=== PATIENT | female | born 1960 | race African-American/Black ===

== ENCOUNTER 2022-03-22 19:13 | Emergency (ER) | payer OTHER ==
[2022-03-22] MEDS ORDERED: Aspirin Chewable 81 MG TAB ONE (19:50)
[2022-03-22 20:24] LABS: #Eosinphils 0.1 10x3/uL (0.0-0.5); #Monocytes 0.6 10x3/uL (0.0-1.1); #Neutrophils 2.5 10x3/uL (1.5-8.4); %Basophils 0.7 % (0.0-2.0); %Eosinophils 1.1 % (0.0-6.0); %Lymphocytes 47.2 % (18.0-47.0); %Monocytes 9.8 % (0.0-10.0); Mean Corpuscular HGB CONC 31.9 g/dL (32.0-36.0); Mean Corpuscular Hemoglobin 29.6 pg (27.0-33.0); Mean Corpuscular Volume 92.7 fl (81.6-98.3); Mean Platelet Volume 11.5 fl (7.4-10.4); Platelet Count 222 10x3/uL (150-450); RBC Distribution Width 12.8 % (11.5-14.5); Red Blood Cell (RBC) Count 4.39 10x6/uL (3.90-5.03); White Blood Cell (WBC) Count 6.2 10x3/uL (3.5-10.5)
[2022-03-22 20:25] LABS: ALT (SGPT) 42 U/L (8-55); AST (SGOT) 65 U/L (5-34); Albumin 4.5 g/dL (3.4-4.8); Alkaline Phosphatase 65 U/L (40-110); Anion Gap 18 mmol/L (10-20); BUN (Urea Nitrogen) 12 mg/dL (9.8-20.1); Bilirubin, Total 0.3 mg/dL (0.2-1.2); Calc. Creatinine Clearance 0 mL/min (70-130); Calcium 8.8 mg/dL (7.8-10.44); Carbon Dioxide 24 mmol/L (23-31); Chloride 100 mmol/L (98-107); Globulin 3.8 g/dL (2.4-3.5); Glucose 104 mg/dL (80-115); Potassium 3.9 mmol/L (3.5-5.1); Protein, Total 8.3 g/dL (5.8-8.1); Sodium 138 mmol/L (136-145)
[2022-03-22 21:06] LABS: SARS-CoV-2 NAA Rapid Test DETECTED (NotDetected)
== END 2022-03-22 21:29 | disposition home or self-care (01) ==
LOC: CSHERS 19:13
DX: U07.1 COVID-19 (principal); R07.2 Precordial pain; E11.9 Type 2 diabetes mellitus without complications; I10 Essential (primary) hypertension
CPT/HCPCS: 71045; 80053; 83880; 84484; 85025; 93005; U0002

== ENCOUNTER 2023-07-14 13:47 | Emergency (ER) | payer OTHER ==
[2023-07-14] MEDS ORDERED: Ondansetron ODT 4 MG TAB ONE (14:34)
[2023-07-14] MEDS ORDERED: Morphine 10 MG/ML VIAL ONE (14:34)
[2023-07-14 16:19] LABS: Bilirubin Neg (Negative); Blood, Urine 10 (Negative); Clarity Slightly Cloudy (Clear); Glucose, Urine (Dipstick) Normal (Negative); Ketone, Urine Negative (Negative); Leukocyte 500 (Negative); Nitrite Negative (Negative); Protein, Urine (Dipstick) 15 mg/dl (Neg-Trace); Specific Gravity, Urine 1.015 (1.005-1.030); Urobilinogen Normal mg/dL (Less than 2)
[2023-07-14 16:31] LABS: Bacteria/HPF 2+ HPF (None Seen); CAUTI Indications for Culture Pelvic or flank pain; RBC/HPF 0-3 HPF (0-3); Squamous Epithelial 0-3 HPF (0-3); Trichomonas/HPF Rare HPF (None Seen); WBC/HPF Greater Than 50 HPF (0-3)
[2023-07-14 16:33] LABS: Urine Culture Reflex Yes Yes
[2023-07-14] MEDS ORDERED: Cephalexin 250 MG CAP ONE (17:05)
== END 2023-07-14 17:10 | disposition home or self-care (01) ==
LOC: CSHERS 13:47
DX: N39.0 Urinary tract infection, site not specified (principal); M54.50 Low back pain, unspecified; I25.10 Atherosclerotic heart disease of native coronary artery without angina pectoris; E11.9 Type 2 diabetes mellitus without complications; I10 Essential (primary) hypertension
CPT/HCPCS: 81001; 87086; 96372; 99283; J2270; Q0162

== ENCOUNTER 2023-10-13 12:20 | Emergency (ER) | payer OTHER ==
[2023-10-13] MEDS ORDERED: Fleet Saline Enema 133 ML BOT PR SCH (13:30)
== END 2023-10-13 16:50 | disposition home or self-care (01) ==
LOC: CSHERS 12:20
DX: K59.00 Constipation, unspecified (principal); I25.10 Atherosclerotic heart disease of native coronary artery without angina pectoris; E11.9 Type 2 diabetes mellitus without complications; I10 Essential (primary) hypertension
CPT/HCPCS: 99283

== ENCOUNTER 2023-12-09 15:17 | Emergency (ER) | payer OTHER ==
[2023-12-09] MEDS ORDERED: traMADol HCl 50 MG TAB ONE (18:40)
== END 2023-12-09 19:01 | disposition home or self-care (01) ==
LOC: CSHERS 15:17
DX: M54.6 Pain in thoracic spine (principal); I25.2 Old myocardial infarction; I25.10 Atherosclerotic heart disease of native coronary artery without angina pectoris; I10 Essential (primary) hypertension; E11.40 Type 2 diabetes mellitus with diabetic neuropathy, unspecified
CPT/HCPCS: 71046

== ENCOUNTER 2024-02-18 12:45 | Emergency (ER) | payer OTHER ==
[~2024-02-18 12:45] MED LIST: Iopamidol 300 61% 100 ML VIAL FS ONE
[2024-02-18] MEDS ORDERED: Ondansetron PF 4 MG/2 ML Vial ONE (14:21)
[2024-02-18] MEDS ORDERED: Morphine 4 MG/ML VIAL ONE (14:21)
[2024-02-18 14:22] LABS: #Basophils 0.08 10x3/uL (0.0-0.2); #Eosinphils 0.33 10x3/uL (0.0-0.5); #Neutrophils 5.16 10x3/uL (1.5-8.4); %Basophils 0.8 % (0.0-2.0); %Eosinophils 3.1 % (0.0-6.0); %Lymphocytes 37.6 % (18.0-47.0); %Monocytes 9.4 % (0.0-10.0); %Neutrophils 48.7 % (40.0-75.0); Hematocrit 41.3 % (34.9-44.5); Hemoglobin 13.8 g/dL (12.0-15.5); Mean Corpuscular HGB CONC 33.4 g/dL (32.0-36.0); Mean Corpuscular Hemoglobin 30.4 pg (27.0-33.0); Mean Platelet Volume 11.2 fl (7.4-10.4); Platelet Count 276 10x3/uL (150-450); RBC Distribution Width 13.9 % (11.5-14.5); Red Blood Cell (RBC) Count 4.54 10x6/uL (3.90-5.03); White Blood Cell (WBC) Count 10.6 10x3/uL (3.5-10.5)
[2024-02-18 14:39] LABS: Troponin I Less than 0.010 ng/mL (< 0.028)
[2024-02-18 14:40] LABS: ALT (SGPT) 20 U/L (8-55); AST (SGOT) 16 U/L (5-34); Alkaline Phosphatase 62 U/L (40-110); Anion Gap 12 mmol/L (10-20); BUN (Urea Nitrogen) 12 mg/dL (9.8-20.1); Bilirubin, Total 0.4 mg/dL (0.2-1.2); Calc. Creatinine Clearance 0 mL/min (70-130); Calcium 9.8 mg/dL (7.8-10.44); Carbon Dioxide 29 mmol/L (23-31); Chloride 99 mmol/L (98-107); Estimated GFR 65; Globulin 3.6 g/dL (2.4-3.5); Glucose 133 mg/dL (80-115); Lipase 67 U/L (8-78); Potassium 3.4 mmol/L (3.5-5.1); Protein, Total 7.6 g/dL (5.8-8.1); Sodium 137 mmol/L (136-145)
[2024-02-18 15:14] LABS: Bilirubin Neg (Negative); Blood, Urine Negative (Negative); Clarity Clear (Clear); Glucose, Urine (Dipstick) Normal (Negative); Ketone, Urine Negative (Negative); Leukocyte 25 (Negative); Nitrite Negative (Negative); Protein, Urine (Dipstick) Negative (Neg-Trace); Urobilinogen Normal mg/dL (Less than 2); pH, Urine 6.5 (5.0-9.0)
[2024-02-18 16:02] LABS: RBC/HPF None Seen HPF (0-3)
[2024-02-18 16:03] LABS: Bacteria/HPF None Seen HPF (None Seen); CAUTI Indications for Culture Pelvic or flank pain; Squamous Epithelial 0-3 HPF (0-3); WBC/HPF 0-3 HPF (0-3)
[2024-02-18 16:04] LABS: Urine Culture Reflex No No
== END 2024-02-18 18:15 | disposition home or self-care (01) ==
LOC: CSHERS 12:45
DX: R10.13 Epigastric pain (principal); E11.9 Type 2 diabetes mellitus without complications; I10 Essential (primary) hypertension
CPT/HCPCS: 36415; 74177; 80053; 81001; 83605; 83690; 84484; 85025; 93005; 96374; 96375; J2270; J2405; Q9967

== ENCOUNTER 2024-04-02 14:33 | Inpatient (IN) | payer OTHER ==
[~2024-04-02 14:33] MED LIST changes: -Iopamidol 300 61% 100 ML VIAL FS ONE; +Iopamidol 370 76% 100 ML VIAL ONE
[2024-04-02 15:27] LABS: #Basophils 0.07 10x3/uL (0.0-0.2); #Eosinphils 0.26 10x3/uL (0.0-0.5); #Monocytes 0.81 10x3/uL (0.0-1.1); #Neutrophils 3.07 10x3/uL (1.5-8.4); %Eosinophils 3.6 % (0.0-6.0); %Lymphocytes 40.8 % (18.0-47.0); %Monocytes 11.4 % (0.0-10.0); %Neutrophils 43.1 % (40.0-75.0); Hematocrit 36.9 % (34.9-44.5); Hemoglobin 12.4 g/dL (12.0-15.5); Mean Corpuscular HGB CONC 33.6 g/dL (32.0-36.0); Mean Corpuscular Volume 92.3 fL (81.6-98.3); Mean Platelet Volume 10.6 fL (7.4-10.4); Platelet Count 244 10x3/uL (150-450); RBC Distribution Width 13.4 % (11.5-14.5); White Blood Cell (WBC) Count 7.1 10x3/uL (3.5-10.5)
[2024-04-02 15:39] LABS: ALT (SGPT) 9 U/L (8-55); AST (SGOT) 15 U/L (5-34); Albumin 4.1 g/dL (3.4-4.8); Alkaline Phosphatase 68 U/L (40-110); Anion Gap 12 mmol/L (10-20); BUN (Urea Nitrogen) 15 mg/dL (9.8-20.1); Bilirubin, Total 0.2 mg/dL (0.2-1.2); Calc. Creatinine Clearance 0 mL/min (70-130); Calcium 9.7 mg/dL (7.8-10.44); Carbon Dioxide 26 mmol/L (23-31); Chloride 104 mmol/L (98-107); Estimated GFR 50; Globulin 3.9 g/dL (2.4-3.5); Glucose 109 mg/dL (80-115); Lipase 44 U/L (8-78); Magnesium 1.8 mg/dL (1.6-2.6); Potassium 3.6 mmol/L (3.5-5.1); Sodium 138 mmol/L (136-145)
[2024-04-02 17:41] LABS: Bilirubin Neg (Negative); Blood, Urine Negative (Negative); Clarity Clear (Clear); Glucose, Urine (Dipstick) Normal (Negative); Ketone, Urine Negative (Negative); Leukocyte 500 (Negative); Nitrite Negative (Negative); Protein, Urine (Dipstick) Negative (Neg-Trace); Specific Gravity, Urine 1.015 (1.005-1.030)
[2024-04-02 17:56] LABS: CAUTI Indications for Culture Pelvic or flank pain; RBC/HPF 0-3 HPF (0-3); Squamous Epithelial 0-3 HPF (0-3)
[2024-04-02 17:57] LABS: Bacteria/HPF 3+ HPF (None Seen); Mucous/LPF 2+ LPF (<2+)
[2024-04-02 17:58] LABS: Urine Culture Reflex No No
[2024-04-02] MEDS ORDERED: Acetaminophen 325 MG TAB PO PRN (18:45)
[2024-04-02] MEDS ORDERED: Ketorolac Tromethamine 30 MG (1 mL) VIAL ONE (19:00)
[2024-04-02] MEDS ORDERED: hydrALAZINE 20 MG/ML VIAL SLOW IVP PRN (19:25)
[2024-04-02] MEDS ORDERED: Gabapentin 100 MG CAP PO PRN (19:27)
[2024-04-02] MEDS ORDERED: HumaLOG 300 UNITS/3 ML VIAL SC PRN (19:33)
[2024-04-02] MEDS ORDERED: Glucagon 1 MG/ML KIT IM PRN (19:33)
[2024-04-02] MEDS ORDERED: Dextrose 5% in Water 1,000 ML IV PRN (19:33)
[2024-04-02] MEDS ORDERED: Dextrose 50% Abboject 50 ML SYRINGE SLOW IVP PRN (19:33)
[2024-04-02 20:40] VITALS: BMI 36.0
[2024-04-02] MEDS: Sodium Chloride 0.9% 1,000 ML IV SCH (23:26)
[2024-04-03 03:27] LABS: Hematocrit 36.3 % (34.9-44.5); Hemoglobin 11.7 g/dL (12.0-15.5)
[2024-04-03 03:53] LABS: Anion Gap 16 mmol/L (10-20); BUN (Urea Nitrogen) 17 mg/dL (9.8-20.1); Calc. Creatinine Clearance 61 mL/min (70-130); Calcium 9.2 mg/dL (7.8-10.44); Carbon Dioxide 22 mmol/L (23-31); Cardiac Risk 5.3 (Less than 4.5); Chloride 105 mmol/L (98-107); Cholesterol 196 mg/dl (< 200 Desired); Estimated GFR 41; Glucose 100 mg/dL (80-115); HDL Cholesterol 37 mg/dL (>60 Neg Risk); LDL Cholesterol, Calculated 114 mg/dL; Potassium 3.7 mmol/L (3.5-5.1); Sodium 139 mmol/L (136-145); Triglycerides 223 mg/dL (Less than 150)
[2024-04-03] MEDS: Enoxaparin 30 MG (0.3 mL) SYRINGE SC SCH (08:29)
[2024-04-03] MEDS: Aspirin 81 mg Enteric Coated Tablet PO SCH (08:29)
[2024-04-03] MEDS: HYDROcodone/Acetaminophen 5/325 mg Tablet PO PRN (08:34)
[2024-04-03] MEDS: Promethazine 25 MG TAB PO PRN (11:07)
[2024-04-03] MEDS: Sodium Chloride 0.9% 1,000 ML IV SCH (15:25)
[2024-04-03] MEDS: Oxybutynin 5 MG TAB PO SCH (15:25)
[2024-04-03] MEDS: Atorvastatin Calcium 40 MG TAB PO SCH (22:00)
[2024-04-03] MEDS: LevoFLOXacin 750 mg/D5W 750 MG in Premix 1 BAG IVPB SCH (22:00)
[2024-04-04 06:08] LABS: Anion Gap 11 mmol/L (10-20); BUN (Urea Nitrogen) 11 mg/dL (9.8-20.1); Calc. Creatinine Clearance 76 mL/min (70-130); Carbon Dioxide 25 mmol/L (23-31); Chloride 106 mmol/L (98-107); Estimated GFR 54; Glucose 114 mg/dL (80-115); Potassium 3.8 mmol/L (3.5-5.1); Sodium 138 mmol/L (136-145)
[2024-04-04 08:07] VITALS: BP 134/64; TEMP 97.6
[2024-04-04 09:17] LABS: GC N.gonorrhoeae PCR,UrineVOID Not Detected (NotDetected)
[2024-04-04 09:20] LABS: Chlam.trachomatis by PCR,Urine Not Detected (NotDetected); Chlamydia by PCR, Vaginal Swab Not Detected (NotDetected); GC by PCR, Vaginal Swab Not Detected (NotDetected)
[2024-04-04] MEDS: Oxybutynin 5 MG TAB PO SCH (10:44)
[2024-04-04] MEDS: Amlodipine 5 MG TAB PO SCH (10:44)
== END 2024-04-04 10:55 | disposition home or self-care (01) | DRG 690 ==
LOC: CSHERS 14:33 → CSHTELE 17:36 → OBSVTOIN 04-03 14:13
PROVIDERS: ADMIT Student in an Organized Health Care Education/Training Program; ATTEND Family Medicine
DX: N39.0 Urinary tract infection, site not specified (principal); N17.9 Acute kidney failure, unspecified; N32.89 Other specified disorders of bladder; I25.10 Atherosclerotic heart disease of native coronary artery without angina pectoris; E78.5 Hyperlipidemia, unspecified; Z88.0 Allergy status to penicillin; Z79.899 Other long term (current) drug therapy; I25.2 Old myocardial infarction; Z98.890 Other specified postprocedural states; Z82.49 Family history of ischemic heart disease and other diseases of the circulatory system; N18.9 Chronic kidney disease, unspecified; E11.22 Type 2 diabetes mellitus with diabetic chronic kidney disease
CPT/HCPCS: 36415; 36416; 70496; 70498; 70551; 74177; 80048; 80053; 80061; 81001; 83605; 83690; 83735; 85014; 85018; 85025; 87040; 87086; 87491; 87591; 96372; 96374; G0378; J1650; J1885; J1956; J7050; Q0169; Q9967

== ENCOUNTER 2024-09-11 12:52 | Emergency (ER) | payer OTHER ==
[2024-09-11] MEDS ORDERED: hydrALAZINE 20 MG/ML VIAL ONE (13:57)
[2024-09-11] MEDS ORDERED: Morphine 2 MG/ML VIAL ONE (13:57)
[2024-09-11] MEDS ORDERED: Ondansetron PF 4 MG/2 ML Vial ONE ×2 (13:57→21:15)
[2024-09-11] MEDS ORDERED: Morphine 4 MG/ML VIAL ONE ×2 (13:57→18:59)
[2024-09-11] MEDS ORDERED: Nitroglycerin 0.4 MG TAB 1 EACH ONE (13:58)
[2024-09-11 14:14] LABS: #Basophils 0.07 10x3/uL (0.0-0.2); #Eosinophils 0.13 10x3/uL (0.0-0.5); #Monocytes 0.75 10x3/uL (0.0-1.1); #Neutrophils 4.63 10x3/uL (1.5-8.4); %Eosinophils 1.9 % (0.0-6.0); %Lymphocytes 20.1 % (18.0-47.0); %Monocytes 10.7 % (0.0-10.0); Hematocrit 40.2 % (34.9-44.5); Hemoglobin 13.2 g/dL (12.0-15.5); Mean Corpuscular HGB CONC 32.8 g/dL (32.0-36.0); Mean Corpuscular Hemoglobin 30.1 pg (27.0-33.0); Mean Corpuscular Volume 91.6 fL (81.6-98.3); Mean Platelet Volume 11.4 fL (7.4-10.4); Platelet Count 228 10x3/uL (150-450); RBC Distribution Width 13.1 % (11.5-14.5); Red Blood Cell (RBC) Count 4.39 10x6/uL (3.90-5.03)
[2024-09-11 14:18] LABS: ALT (SGPT) 16 U/L (8-55); AST (SGOT) 22 U/L (5-34); Albumin 4.3 g/dL (3.4-4.8); Alkaline Phosphatase 75 U/L (40-110); Anion Gap 17 mmol/L (10-20); BUN (Urea Nitrogen) 10 mg/dL (9.8-20.1); Bilirubin, Total 0.4 mg/dL (0.2-1.2); Calc. Creatinine Clearance 0 mL/min (70-130); Calcium 9.5 mg/dL (7.8-10.44); Carbon Dioxide 21 mmol/L (23-31); Chloride 107 mmol/L (98-107); Estimated GFR 75; Globulin 3.9 g/dL (2.4-3.5); Glucose 107 mg/dL (80-115); Potassium 3.5 mmol/L (3.5-5.1); Protein, Total 8.2 g/dL (5.8-8.1); Sodium 141 mmol/L (136-145)
[2024-09-11 14:22] LABS: Troponin I Less than 0.010 ng/mL (< 0.028)
[2024-09-11] MEDS ORDERED: Aspirin Chewable 81 MG TAB ONE (18:02)
[2024-09-11] MEDS ORDERED: niCARdipine 25 MG/10 ML SDV ONE (18:03)
== END 2024-09-11 21:24 | disposition short-term general hospital (02) ==
LOC: CSHERS 12:52
DX: R07.9 Chest pain, unspecified (principal); I16.0 Hypertensive urgency; E11.9 Type 2 diabetes mellitus without complications; I10 Essential (primary) hypertension; Z79.899 Other long term (current) drug therapy
CPT/HCPCS: 36415; 71045; 71275; 74174; 80053; 83605; 83880; 84484; 85025; 85379; 93005; 94760; 96365; 96366; 96375; 96376; J0360; J2272; J2405